=== PATIENT | male | born 1990 | race Caucasian/White ===

== ENCOUNTER 2019-05-29 01:05 | Emergency (ER) | payer OTHER ==
[~2019-05-29] VITALS: Ht 167.6 cm; Wt 79.4 kg
[2019-05-29 01:05] VITALS: BP 133/82
--- NOTE | 2019-05-29 01:12 | NUR ---
PT AMBULATED TO BED 6
--- NOTE | 2019-05-29 01:20 | NUR ---
28 Y/O M PRESENTED TO ED WITH C/O HEART PALPITATIONS AND NUMBESS/TINGLING TO L ARM. AAOX4. PT ABLE TO SPEAK FULL SENTENCES. PERRL PRESENT. BEHAVIOR ANXIOUS. PT ADMITTED TO INGESTING ECTASY AT 1929 AND 2144. PT DENIES ALCOHOL CONSUMPTION. PT TACHYCARDIC, HR 143. PT DIAPHORETIC. PT NOTED TO BE HYPERVENTILATING WITH LABORED BREATHING, R 33. +CMS. PT FRIEND AT BEDSIDE. BEDRAILX1 UP AND GURNEY LOCKED. ERMD NOTIFIED OF PT STATUS. WILL CONTINUE TO MONITOR.
--- NOTE | 2019-05-29 01:20 | NUR ---
EKG PERFORMED AT BEDSIDE
[2019-05-29] MEDS ORDERED: LORazepam 2 MG/ML VIAL IM ONE (01:45)
--- NOTE | 2019-05-29 01:45 | NUR ---
PT TACHYCARDIC, HR 125. DR. SANDERS NOTIFIED.
[2019-05-29] MEDS ORDERED: METOPROLOL 5 MG/5 ML VIAL IVP ONE (02:05)
--- NOTE | 2019-05-29 02:15 | NUR ---
PT HAS NSR, HR 86. WILL CONTINUE TO MONITOR.
[2019-05-29 02:17] VITALS: BP 135/82
--- NOTE | 2019-05-29 02:30 | NUR ---
Patient discharged with v/s stable. Written and verbal after care instructions given and explained. Patient verbalized understanding. Ambulatory with steady gait. All questions addressed prior to discharge. Pt given substance abuse resources.
== END 2019-05-29 02:30 | disposition home or self-care (01) ==
LOC: MED 01:05
DX: F19.10 Other psychoactive substance abuse, uncomplicated (principal)
CPT/HCPCS: 93005; 96372; 96374; 99283; J2060; J3490